=== PATIENT | female | born 1965 | race Caucasian/White ===

== ENCOUNTER 2017-06-29 08:21 | Emergency (ER) | payer BC ==
[~2017-06-29] VITALS: Ht 162.6 cm; Wt 85.6 kg
[2017-06-29 09:11] LABS: HEMATOCRIT 38.7 % (36.0-46.0); MCH 29.2 PG (29.0-34.0); MCHC 32.6 G/DL (30.0-36.0); MCV 89.8 FL (83-99); MEAN PLAT.VOLUME 9.2 uM^3 (9.5-12.4); PLATELET COUNT 285 K/uL (156-360); RBC DIS.WIDTH-CV 13.7 % (11.8-14.6); RBC DIS.WIDTH-SD 45.5 % (39-53); RED BLOOD COUNT 4.31 M/uL (3.80-5.20); WHITE BLOOD COUNT 7.3 K/uL (4.1-10.2)
[2017-06-29 09:24] LABS: CHLORIDE 99 mEq/L (99-109); POTASSIUM 3.8 mEq/L (3.7-5.4); SODIUM 137 mEq/L (136-147)
[2017-06-29 09:26] LABS: GLUCOSE 78 mg/dL (70-99)
[2017-06-29 09:27] LABS: ANION GAP 9 MEQ/L (2-14)
[2017-06-29 09:28] LABS: TOTAL BILIRUBIN 0.5 mg/dL (0.0-1.0)
[2017-06-29 09:30] LABS: ALKALINE PHOSPHATASE 48 IU/L (3-129); GFR ESTIMATE (CALCULATED) > 59 mL/min/
[2017-06-29 09:31] LABS: UREA NITROGEN (BUN) 15 mg/dL (9-23)
[2017-06-29 09:33] LABS: LIPASE 38 U/L (1.0-51.0)
[2017-06-29] MEDS ORDERED: MIRALAX17 GM PO (10:27)
[2017-06-29 10:34] VITALS: BP 126/85
== END 2017-06-29 11:01 | disposition home or self-care (01) ==
LOC: EME 08:21
PROVIDERS: Emergency Medicine
DX: K59.00 Constipation, unspecified (principal)
CPT/HCPCS: 74020; 80053; 83690; 85027; 99281; 99283

== ENCOUNTER 2018-02-14 13:38 | Observation (INO) | payer BC ==
[~2018-02-14] VITALS: Ht 162.6 cm; Wt 86.4 kg
[~2018-02-14 13:38] MED LIST: MIRALAX17 GM PO
[2018-02-14 14:04] LABS: HEMATOCRIT 39.9 % (36.0-46.0); HEMOGLOBIN 13.5 G/DL (11.9-15.5); MCH 29.7 PG (29.0-34.0); MCHC 33.8 G/DL (30.0-36.0); MCV 87.7 FL (83-99); PLATELET COUNT 347 K/uL (156-360); RBC DIS.WIDTH-CV 13.3 % (11.8-14.6); RBC DIS.WIDTH-SD 43.2 % (39-53); RED BLOOD COUNT 4.55 M/uL (3.80-5.20); WHITE BLOOD COUNT 8.8 K/uL (4.1-10.2)
[2018-02-14 14:25] LABS: CHLORIDE 100 mEq/L (99-109); GLUCOSE 103 mg/dL (70-99); POTASSIUM 3.6 mEq/L (3.7-5.4); SODIUM 139 mEq/L (136-147)
[2018-02-14 14:27] LABS: GFR ESTIMATE (CALCULATED) > 59 mL/min/
[2018-02-14 14:28] LABS: UREA NITROGEN (BUN) 20 mg/dL (9-23)
[2018-02-14 14:44] LABS: TROP-I INTERPRETATION NEGATIVE; TROPONIN-I 0.02 ng/mL (0.0-0.30)
[2018-02-14] MEDS ORDERED: IRBESARTAN150 MG PO (16:29)
[2018-02-14] MEDS ORDERED: MAXZIDE 37.5 M1 EACH PO (16:31)
[2018-02-14 17:21] LABS: HDL CHOLESTEROL 65 MG/DL (Desirable>=50); LDL CHOLESTEROL 179 mg/dL (Desirable<100); NON-HDL CHOLESTEROL 204 mg/dL (Desirable<160); TOTAL CHOLESTEROL 269 mg/dL (Desirable<200); TRIGLYCERIDES 124 MG/DL (Normal: <150)
[2018-02-14 20:29] VITALS: BP 116/67
[2018-02-14 23:22] VITALS: BP 85/48
[2018-02-14 23:30] VITALS: BP 80/52
[2018-02-15] VITALS (7 sets, daily range): BP systolic 90–105; BP diastolic 49–68
[2018-02-15 05:53] LABS: HEMATOCRIT 34.5 % (36.0-46.0); HEMOGLOBIN 11.2 G/DL (11.9-15.5); MCH 28.8 PG (29.0-34.0); MCHC 32.5 G/DL (30.0-36.0); MCV 88.7 FL (83-99); PLATELET COUNT 287 K/uL (156-360); RBC DIS.WIDTH-CV 13.3 % (11.8-14.6); RBC DIS.WIDTH-SD 43.7 % (39-53); RED BLOOD COUNT 3.89 M/uL (3.80-5.20); WHITE BLOOD COUNT 7.9 K/uL (4.1-10.2)
[2018-02-15 06:01] LABS: CHLORIDE 103 MEQ/L (99-109); GFR ESTIMATE (CALCULATED) > 59 mL/min/; GLUCOSE 103 mg/dL (70-99); POTASSIUM 3.9 MEQ/L (3.7-5.4); SODIUM 140 MEQ/L (136-147); UREA NITROGEN (BUN) 18 mg/dL (9-23)
[2018-02-15 06:16] LABS: APPEARANCE CLEAR ((CLEAR)); BILIRUBIN NEGATIVE; BLOOD NEGATIVE; COLOR LT. YELLOW ((YELLOW)); GLUCOSE (STRIP) NEGATIVE; KETONES NEGATIVE; LEUKOCYTES NEGATIVE; NITRITE NEGATIVE; PROTEIN (STRIP) NEGATIVE; SPECIFIC GRAVITY 1.002 (1.000-1.030); UCUL ADDED? NO; UROBILINOGEN 0.2 MG/DL (0.2-1.0)
[2018-02-15 10:11] LABS: HEMOGLOBIN A1c (GLYCOHEMOGLOB) 5.4 % (Below 5.7)
[2018-02-15] MEDS ORDERED: ASPIR-LOW81 MG PO (14:12)
[2018-02-15] MEDS ORDERED: ATORVASTATIN CA40 MG PO (14:13)
== END 2018-02-15 20:32 | disposition home or self-care (01) ==
LOC: EME 13:38 → EDOF 16:13 → 5WEST 16:13 → EDOF 16:13 → ENRESERV 16:14 → 5WEST 20:26
PROVIDERS: Physician Assistant
DX: G43.109 Migraine with aura, not intractable, without status migrainosus (principal); I10 Essential (primary) hypertension; H53.8 Other visual disturbances; R42 Dizziness and giddiness; Z87.19 Personal history of other diseases of the digestive system; Z90.49 Acquired absence of other specified parts of digestive tract; Z82.49 Family history of ischemic heart disease and other diseases of the circulatory system; Z88.5 Allergy status to narcotic agent
CPT/HCPCS: 70450; 70551; 71046; 80047; 80048; 80061; 81003; 83036; 84484; 85027; 93005; 93880; 99281; 99285; G0378; J0780; J1200; J1650; J7030